=== PATIENT | male | born 1950 | race Caucasian/White ===

== ENCOUNTER 2020-07-27 15:32 | Outpatient (CLI) | payer MEDICARE, OTHER, SELFPAY ==
--- NOTE | ~2020-07-27 | XR_ITS ---
EXAMINATION: XR shoulder RT min 2V DATE: 07/27/2020 16:03 INDICATION: Right shoulder pain TECHNIQUE: AP internally and externally rotated, AP oblique externally rotated and transscapular Y vi ews of the right shoulder were obtained. COMPARISON: None FINDINGS: Old right clavicle fracture which is healed with some overriding. Alignment is otherwise normal. No a cute fracture. Mild glenohumeral osteoarthritis with mild cephalad predominant nonuniform joint space narrowing. Acromioclavicular joint is normal. Soft tissues are unremarkable. IMPRESSION: Old healed right clavicle fracture deformity and mild right glenohumeral osteoarthritis. Reviewed, dictated and finalized at location A. IMPRESSION: Old healed right clavicle fracture deformity and mild right glenohumeral osteoa rthritis.
--- NOTE | ~2020-07-27 | XR_ITS ---
EXAMINATION: XR lumbar spine 2-3V DATE: 07/27/2020 16:03 INDICATION: Low back pain TECHNIQUE: Anteroposterior and lateral views of the lumbar spine, and cone-down lateral view of the l umbosacral junction were obtained. COMPARISON: None. FINDINGS: Alignment is normal. Minimal likely physiologic anterior wedging at T12 and L1. Remaining vertebral b darryl heights are normal. Mild disc height loss at L3-L4 and L4-L5. At least mild osteoarthritis in the mid to lower lumbar spine. Additional mild osteoarthritis at the visualized cephalad portions of the bilateral sacroiliac joints. IMPRESSION: 1. Mild lower lumbar spondylosis. Reviewed, dictated and finalized at location A.
[2020-07-27 15:46] LABS: Hematocrit 45.7 % (37.0-46.0); Hemoglobin 16.3 g/dL (12.4-15.3); Mean Corpuscular HGB Conc 35.7 g/dL (32.0-36.0); Mean Corpuscular Hemoglobin 32.5 pg (27.0-31.0); Mean Corpuscular Volume 91.2 fL (78.0-102.0); Mean Platelet Volume 8.7 fl (8.7-11.0); Platelet Count Result 276 K/mm3 (150-420); Red Blood Count 5.01 M/mm3 (4.70-6.10); Red Cell Distribution Width 12.4 % (11.6-14.4); White Blood Count 11.1 K/mm3 (4.8-10.8)
[2020-07-27 16:41] LABS: Alanine Aminotransferase 41 U/L (16-63); Albumin Level 4.2 g/dL (3.4-5.0); Alkaline Phosphatase 57 U/L (46-116); Anion Gap 10 mmol/L (8-16); Aspartate Amino Transferase 28 U/L (15-37); Bilirubin,Total 0.6 mg/dL (0.00-1.00); Blood Urea Nitrogen 25 mg/dL (7-18); Calcium 9.6 mg/dL (8.5-10.1); Carbon Dioxide 26 mmol/L (21-32); Chloride 102 mmol/L (98-108); Cholesterol 174 mg/dL (0-200); Estimated Glomerular Filt Rate 56; Glucose 106 mg/dL (70-99); HDL Direct 45 mg/dL (40-60); LDL Cholesterol Calculated 81 mg/dL (<130); Osmolality Calculated 290 mOsm/kg (285-295); Prostate Specific Antigen 1.7 ng/mL (< OR = 4.0); Sodium 138 mmol/L (136-145); Total Protein 7.4 g/dL (6.4-8.2); Triglycerides 242 mg/dL (0-150)
== END 2020-07-27 15:33 | disposition home or self-care (01) ==
LOC: CHSLAB 15:35
PROVIDERS: PCP Family Medicine; Visit Provider Family Medicine
DX: M54.9 Dorsalgia, unspecified (principal); G89.29 Other chronic pain; I10 Essential (primary) hypertension; N50.82 Scrotal pain; Z12.5 Encounter for screening for malignant neoplasm of prostate
CPT/HCPCS: 36415; 72100; 73030; 80053; 80061; 84153; 85027; G0103

== ENCOUNTER 2020-07-30 08:09 | Outpatient (RCR) | payer MEDICARE, SELFPAY ==
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
== END 2020-10-28 23:59 | disposition home or self-care (01) ==
LOC: CHSPT 08:09
PROVIDERS: PCP Family Medicine; Visit Provider Family Medicine
DX: M25.511 Pain in right shoulder (principal); G89.29 Other chronic pain; M54.9 Dorsalgia, unspecified
CPT/HCPCS: 97110; 97161

== ENCOUNTER 2020-07-31 12:29 | Outpatient (CLI) | payer MEDICARE, OTHER, SELFPAY ==
--- NOTE | ~2020-07-31 | US_ITS ---
US scrotum doppler INDICATION: Bilateral testicular pain TECHNIQUE: Testicular sonogram utilizing grayscale and color Doppler FINDINGS: The testes are normal in size and appearance. No focal lesions are seen. The right testes measures 4.2 x 2.6 x 3.1 cm centimeters, and the left testis measures 4.2 x 2.4 x 2.9 cm cm. There is normal vascular flow to both testes. There are small bilateral subcentimeter epididymal cysts. Small bilateral hydroceles. Right varicocele. IMPRESSION: 1. Small bilateral hydroceles. 2: Right varicocele. Reviewed, dictated and finalized at location B.
== END 2020-07-31 12:30 | disposition home or self-care (01) ==
LOC: CHSIMG 12:30
PROVIDERS: PCP Family Medicine; Visit Provider Family Medicine
DX: I10 Essential (primary) hypertension (principal)
CPT/HCPCS: 76870; 93976

== ENCOUNTER 2021-06-01 14:51 | Outpatient (CLI) | payer MEDICARE, OTHER, SELFPAY ==
--- NOTE | ~2021-06-01 | XR_ITS ---
XR chest 2V DATE: 06/01/2021 15:12 INDICATION: Left anterior upper chest pain today TECHNIQUE: 2 views COMPARISON: 01/30/2015 portable AP chest FINDINGS: There is an old healed fracture of the right clavicular shaft. Normal heart size. No hilar or mediastinal enlargement. No pulmonary infiltrate or consolidation, ple ural effusion or pulmonary vascular congestion or pneumothorax. IMPRESSION: No active cardiopulmonary disease Reviewed, dictated and finalized at location A. 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
--- NOTE | ~2021-06-01 | XR_ITS ---
XR wrist LT w scaphoid DATE: 06/01/2021 15:13 INDICATION: Chronic pain, swelling, weakness at base of first metacarpal TECHNIQUE: 5 views COMPARISON: None FINDINGS: There is severe narrowing of the radiocarpal scapholunate joint with invagination of the di stal radius by the scaphoid bone. There is severe narrowing and cystic change at the articulation between the capitate and lunate bones . There is osteoarthritic change at the triscaphe joint. There is an apparent old fracture of the medial base of the first metacarpal bone with lateral displa cement of the remainder of the first metacarpal bone, associated lateral subluxation at the first car pometacarpal joint. There is severe joint space narrowing and some spurring at the first carpometacarpal joint. IMPRESSION: Probable old intra-articular fracture at the medial base of the first metacarpal bone wit h lateral displacement of the remainder of the first metacarpal, associated lateral subluxation at th e first carpometacarpal joint Polyarticular osteoarthritis, particularly severe at the radial scaphoid and capitate lunate and firs t carpometacarpal joints Reviewed, dictated and finalized at location A. 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
== END 2021-06-01 14:52 | disposition home or self-care (01) ==
LOC: CHSIMG 14:54
PROVIDERS: PCP Family Medicine; Visit Provider Family Medicine
DX: R07.9 Chest pain, unspecified (principal); M25.532 Pain in left wrist
CPT/HCPCS: 71046; 73110

== ENCOUNTER 2022-02-08 10:39 | Outpatient (NON) | payer MEDICARE, SELFPAY | END 2022-02-08 10:40 | disposition home or self-care (01) | LOC: CHSLAB 10:41 | PROVIDERS: Visit Provider Family Medicine | DX: C76.1 Malignant neoplasm of thorax (principal) | CPT/HCPCS: 88305 ==

== ENCOUNTER 2023-04-14 11:12 | Outpatient (CLI) | payer MEDICARE, SELFPAY ==
[2023-04-14 11:31] LABS: Basophils Absolute Auto 0.07 K/mm3 (0.00-0.10); Basophils Percent Auto 0.9 % (0.0-1.0); Eosinophils Absolute Auto 0.16 K/mm3 (0.02-0.50); Eosinophils Percent Auto 2.1 % (1.0-6.0); Hematocrit 48.3 % (37.0-46.0); Hemoglobin 17.3 g/dL (12.4-15.3); Immature Granulocyte Absolute 0.03 K/mm3 (0.00-0.00); Immature Granulocyte Percent A 0.4 % (0.0-0.0); Lymphocytes Absolute Auto 2.14 K/mm3 (1.10-4.50); Mean Corpuscular HGB Conc 35.8 g/dL (32.0-36.0); Mean Corpuscular Hemoglobin 32.8 pg (27.0-31.0); Mean Corpuscular Volume 91.7 fL (78.0-102.0); Mean Platelet Volume 8.5 fl (8.7-11.0); Monocytes Absolute Auto 0.46 K/mm3 (0.10-0.90); Neutrophils Absolute Auto 4.8 K/mm3 (1.7-7.2); Neutrophils Percent Auto 62.6 % (50.0-70.0); Platelet Count Result 268 K/mm3 (150-420); Red Blood Count 5.27 M/mm3 (4.70-6.10); Red Cell Distribution Width 11.9 % (11.6-14.4); White Blood Count 7.6 K/mm3 (4.8-10.8)
[2023-04-14 11:56] LABS: Alanine Aminotransferase 56 U/L (16-63); Albumin Level 4.3 g/dL (3.4-5.0); Alkaline Phosphatase 53 U/L (46-116); Anion Gap 12 mmol/L (8-16); Aspartate Amino Transferase 25 U/L (15-37); Bilirubin,Total 0.7 mg/dL (0.00-1.00); Blood Urea Nitrogen 16 mg/dL (7-18); Calcium 9.2 mg/dL (8.5-10.1); Carbon Dioxide 26 mmol/L (21-32); Chloride 99 mmol/L (98-108); Cholesterol 187 mg/dL (0-200); Estimated Glomerular Filt Rate > 60; Glucose 115 mg/dL (70-99); HDL Direct 56 mg/dL (40-60); LDL Cholesterol Calculated 103 mg/dL (<130); Osmolality Calculated 286 mOsm/kg (285-295); Sodium 137 mmol/L (136-145); Total Protein 7.7 g/dL (6.4-8.2); Triglycerides 142 mg/dL (0-150)
== END 2023-04-14 11:13 | disposition home or self-care (01) ==
LOC: CHSLAB 11:18
PROVIDERS: PCP Family Medicine; Visit Provider Family Medicine
DX: I10 Essential (primary) hypertension (principal)
CPT/HCPCS: 36415; 80053; 80061; 85025

== ENCOUNTER 2024-06-14 10:38 | Outpatient (CLI) | payer MEDICARE, SELFPAY ==
--- NOTE | ~2024-06-14 | XR_ITS ---
Left Knee Technique: AP and lateral views were obtained. Clinical History: Pain Findings: No fracture or dislocation is seen. There is mild medial compartment narrowing with moderat e spurring at the medial lateral joint lines. There is minimal patellar spurring. Moderate joint effu hank is seen. Impression: Degenerative change, as above. Moderate joint effusion. Reviewed, dictated and finalized at location . Impression: Degenerative change, as above. Moderate joint effusion.
--- NOTE | ~2024-06-14 | XR_ITS ---
Right Knee Technique: AP and lateral views were obtained. Clinical History: Pain Findings: No fracture or dislocation is seen. There is moderate osteophyte formation at the medial la teral joint lines. There is mild patellofemoral degenerative spurring.. Soft tissues are unremarkable . No joint effusion is seen. Impression: Moderate tricompartmental osteoarthritis, as detailed above. Reviewed, dictated and finalized at location . Impression: Moderate tricompartmental osteoarthritis, as detailed above.
[2024-06-14 10:59] LABS: Basophils Absolute Auto 0.06 K/mm3 (0.00-0.10); Basophils Percent Auto 0.8 % (0.0-1.0); Eosinophils Absolute Auto 0.17 K/mm3 (0.02-0.50); Eosinophils Percent Auto 2.4 % (1.0-6.0); Hemoglobin 15.8 g/dL (12.4-15.3); Immature Granulocyte Absolute 0.03 K/mm3 (0.00-0.00); Immature Granulocyte Percent A 0.4 % (0.0-0.0); Lymphocytes Absolute Auto 1.65 K/mm3 (1.10-4.50); Lymphocytes Percent Auto 23.4 % (18.0-42.0); Mean Corpuscular HGB Conc 33.6 g/dL (32-36); Mean Corpuscular Hemoglobin 30.9 pg (27.0-31.0); Mean Platelet Volume 8.5 fl (8.7-11.0); Monocytes Absolute Auto 0.43 K/mm3 (0.10-0.90); Monocytes Percent Auto 6.1 % (2.0-11.0); Neutrophils Absolute Auto 4.72 K/mm3 (1.70-7.20); Neutrophils Percent Auto 66.9 % (50.0-70.0); Platelet Count Result 233 K/mm3 (150-420); Red Blood Count 5.11 M/mm3 (4.70-6.10); Red Cell Distribution Width 13.2 % (11.6-14.4); White Blood Count 7.1 K/mm3 (4.8-10.8)
--- OUTSIDE RECORDS SUMMARY | 2024-06-14 11:23 | XMS_ITS | Clinical Summary ---
Author Organization [facility] Address [address] [place] [id number] Care Team Providers Care Clinical Admissions Manager Name Role Phone Aaron Shelton MD Primary Care Provider Social History Tobacco Use Types Packs/Day Years Used Date Smoking Tobacco: Never Assessed Sex and Gender Information Value Date Recorded Sex Assigned at Not on file Legal Sex Male 1:25 AM CDT Gender Identity Not on file Sexual Orientation Not on file Plan of Treatment Health Maintenance Due Date Last Done Comments Colorectal Cancer Screening Colonoscopy (10 Years) 1950 Hepatitis C 1967 DTaP, Tdap and Td Vaccines ( 1 - Tdap) 02/26/1968 Zoster Vaccines (1 of 2) 1999 Pneumococcal Vaccine: 65+ Ye ars (1 of 1 - PCV) 2014 COVID-19 Vaccine ( - 2023-2 5 season) 2023 Influenza Adult (#1) 2024 RSV Immunization or 60+ Years (1 - 1-dose 75+ series) 02/26/2024 Meningococcal B Vaccine Aged Out No l onger eligible based on patient's age to complete this topic Meningococcal Vaccine Aged Out No mickie lilo eligible based on patient's age to complete this topic RSV Immunizations Under 20 Months Aged Out No longer eligible based on patient's age to complete this topic Care Teams Clinical Admissions Manager Relationship Specialty Start Date End Date Aaron Shelton MD [address] [place] [id number] PCP - General 03/09/15
[2024-06-14 11:41] LABS: Thyroid Stimulating Hormone Reflex 2.37 u/IU/mL (0.36-3.74)
[2024-06-14 11:46] LABS: Rheumatoid Factor Screen Negative (Negative)
[2024-06-14 12:02] LABS: Alanine Aminotransferase 29 U/L (16-63); Albumin Level 4.6 g/dL (3.4-5.0); Alkaline Phosphatase 74 U/L (46-116); Anion Gap 10 mmol/L (4-12); Aspartate Amino Transferase 15 U/L (15-37); Bilirubin,Total 0.9 mg/dL (0.00-1.00); Blood Urea Nitrogen 23 mg/dL (7-18); CRP < 0.5 mg/dL (0.0-0.9); Calcium 9.6 mg/dL (8.5-10.1); Carbon Dioxide 29 mmol/L (21-32); Chloride 102 mmol/L (98-108); Cholesterol 166 mg/dL (0-200); Estimated Glomerular Filt Rate > 60; Folic Acid > 20.0 ng/mL (8.6->20); Glucose 111 mg/dL (70-99); HDL Direct 57 mg/dL (40-60); LDL Cholesterol Calculated 84 mg/dL (<130); Osmolality Calculated 296 mOsm/kg (285-295); Potassium 4.1 mmol/L (3.5-5.1); Sodium 141 mmol/L (136-145); Total Protein 7.9 g/dL (6.4-8.2); Triglycerides 125 mg/dL (0-150); Vitamin B12 702 pg/mL (193-986)
== END 2024-06-14 10:39 | disposition home or self-care (01) ==
PROVIDERS: PCP Family Medicine; Visit Provider Family Medicine
DX: I10 Essential (primary) hypertension (principal); E03.9 Hypothyroidism, unspecified; G62.9 Polyneuropathy, unspecified; M79.641 Pain in right hand; M79.642 Pain in left hand; E53.8 Deficiency of other specified B group vitamins; M17.11 Unilateral primary osteoarthritis, right knee; M25.462 Effusion, left knee
CPT/HCPCS: 36415; 73560; 80053; 80061; 82607; 82746; 84443; 85025; 86038; 86140; 86430